=== PATIENT | female | born 1975 | race Two or more races ===

== ENCOUNTER 2022-02-12 07:03 | Day surgery (SDC) | payer OTHER ==
[~2022-02-12] VITALS: Ht 162.6 cm; Wt 52.2 kg
[2022-02-12] MEDS ORDERED: IV NS 0.9% 0 ML IV ONE (10:52)
[2022-02-12] MEDS ORDERED: IOHEXOL-350 100 ML VIAL IV ONE ×2 (10:52→11:29)
[2022-02-12] MEDS ORDERED: CT SWABBABLE VALVE TRANS SET 1 EA INFUS.SET MC ONE ×2 (10:52→11:29)
[2022-02-12] MEDS ORDERED: IV NS 0.9% 250 ML IV ONE (11:29)
[2022-02-12] MEDS ORDERED: METOPROLOL TARTRATE INJ 5 MG/5 ML AMPUL IVP PRN (12:00)
[2022-02-12] MEDS ORDERED: NITROGLYCERIN 0.4 MG/TAB BOTTLE SL ONE (12:00)
[2022-02-12] MEDS ORDERED: METOPROLOL TARTRATE INJ 5 MG/5 ML AMPUL ONE (12:05)
[2022-02-12 12:07] VITALS: BP 133/69
== END 2022-02-12 12:20 | disposition short-term general hospital (02) ==
LOC: CT 07:03
PROVIDERS: ATTEND Internal Medicine Interventional Cardiology
DX: R07.9 Chest pain, unspecified (principal)
CPT/HCPCS: 75574; J3490; J7050; Q9967